=== PATIENT | male | born 1960 | race Caucasian/White ===

== ENCOUNTER 2021-05-22 06:11 | Day surgery (SDC) | payer OTHER ==
[~2021-05-22] VITALS: Ht 165.1 cm; Wt 75.0 kg
[2021-05-22] MEDS ORDERED: LIDOCAINE 2% 30 ML JELLY TP ONE (06:12)
[2021-05-22] MEDS ORDERED: LIDOCAINE 4% 50 ML SOLUTION TP ONE (06:12)
[2021-05-22] MEDS ORDERED: BENZOCAINE 20% 50 MCG/SPRAY 57 GM TP ONE (06:12)
[2021-05-22] MEDS ORDERED: SODIUM CHLORIDE 0.9% 1,000 ML IV ONE (06:30)
[2021-05-22 06:44] LABS: COVID AG,FIA SOURCE NASOPHARYNGEAL
[2021-05-22] MEDS ORDERED: SODIUM CHLORIDE 0.9% 1,000 ML ONE (06:48)
[2021-05-22] MEDS ORDERED: FentaNYL CITRATE PF 100 MCG/2 ML VIAL ONE (07:24)
[2021-05-22] MEDS ORDERED: MIDAZOLAM HCL 5 MG/ML VIAL ONE (07:24)
[2021-05-22] MEDS ORDERED: FINA5TAB41 PO (07:47)
[2021-05-22] MEDS ORDERED: FISH1 PO (07:47)
[2021-05-22] MEDS ORDERED: ATOR10TA69 PO (07:47)
[2021-05-22] MEDS ORDERED: MONT-40 PO (07:47)
[2021-05-22] MEDS ORDERED: FAMO20TA8 PO (07:47)
[2021-05-22] MEDS ORDERED: AMLO5TAB66 PO (07:47)
[2021-05-22] MEDS ORDERED: CHOL200016 PO (07:47)
[2021-05-22] MEDS ORDERED: ASPI-1444 PO (07:47)
[2021-05-22] MEDS ORDERED: MethylPREDNISolone SOD SUCC 125 MG/2 ML VIAL IVP ONE (09:15)
[2021-05-22] MEDS ORDERED: MethylPREDNISolone SOD SUCC 125 MG/2 ML VIAL ONE (09:23)
[2021-05-22] MEDS ORDERED: OXYGEN THERAPY IH SCH (20:00)
== END 2021-05-22 12:00 | disposition home or self-care (01) ==
LOC: SURGERY 06:11
PROVIDERS: ATTEND Internal Medicine Critical Care Medicine
DX: J38.4 Edema of larynx (principal); B37.0 Candidal stomatitis; J39.8 Other specified diseases of upper respiratory tract; Z79.899 Other long term (current) drug therapy; Z98.890 Other specified postprocedural states
CPT/HCPCS: 31623; 31624; 71045; 71250; 87015; 87070; 87101; 87206; 87220; 87426; 88112; 88184; 88185; 88312; C9803; J2250; J2930; J3010; J7030; Z7610

== ENCOUNTER 2022-04-12 06:21 | Day surgery (SDC) | payer OTHER ==
[~2022-04-12] VITALS: Ht 158.8 cm; Wt 76.3 kg
[~2022-04-12 06:21] MED LIST: AMLO5TAB66 PO; ASPI-1444 PO; ATOR10TA69 PO; CHOL200059 PO; FAMO20TA8 PO; FINA5TAB41 PO; FISH1 PO; MONT-40 PO
[2022-04-12] MEDS ORDERED: LIDOCAINE 2% 11 ML JELLY TP ONE (06:22)
[2022-04-12] MEDS ORDERED: ALBUTEROL SULFATE 2.5 MG/0.5 ML NEB SOLUTION NEB ONE (06:22)
[2022-04-12] MEDS ORDERED: LIDOCAINE 4% 50 ML SOLUTION TP ONE (06:22)
[2022-04-12] MEDS ORDERED: BENZOCAINE 20% 50 MCG/SPRAY 57 GM TP ONE (06:22)
[2022-04-12 06:59] LABS: COVID AG,FIA SOURCE NASAL SWAB
[2022-04-12] MEDS ORDERED: SODIUM CHLORIDE 0.9% 1,000 ML IV ONE (07:00)
[2022-04-12] MEDS ORDERED: SODIUM CHLORIDE 0.9% 1,000 ML ONE (07:43)
[2022-04-12] MEDS ORDERED: FentaNYL CITRATE PF 100 MCG/2 ML VIAL ONE (08:30)
[2022-04-12] MEDS ORDERED: MIDAZOLAM HCL 2 MG/2 ML VIAL ONE (08:31)
[2022-04-12] MEDS ORDERED: MethylPREDNISolone SOD SUCC 125 MG/2 ML VIAL IVP ONE (09:45)
[2022-04-12] MEDS ORDERED: MethylPREDNISolone SOD SUCC 125 MG/2 ML VIAL ONE (10:16)
[2022-04-12] MEDS ORDERED: OXYGEN THERAPY IH SCH (20:00)
== END 2022-04-12 12:40 | disposition home or self-care (01) ==
LOC: SURGERY 06:21
PROVIDERS: ATTEND Internal Medicine Critical Care Medicine
DX: J38.4 Edema of larynx (principal); B37.0 Candidal stomatitis; I10 Essential (primary) hypertension; E78.00 Pure hypercholesterolemia, unspecified; Z20.822 Contact with and (suspected) exposure to COVID-19; Z79.899 Other long term (current) drug therapy; Z98.890 Other specified postprocedural states
CPT/HCPCS: 31623; 88112; 87101; 87220; 87070; 88305; 87186; 31624; 94640; 71045; 87015; 87426; 87206; J3010; J2250; J2930; Q9967; J7030; C9803; J7613; Z7610

== ENCOUNTER 2023-09-21 06:53 | Day surgery (SDC) | payer OTHER ==
[~2023-09-21] VITALS: Ht 160 cm; Wt 76.8 kg
[~2023-09-21 06:53] MED LIST changes: -ASPI-1444 PO; +CETI10TA58 PO; +FAMO20 PO; -FAMO20TA8 PO; -FISH1 PO; +FLUT16SP NASAL; +OMEG10005 PO; +SODIUM CHLORIDE 0.9% 1,000 ML ONE
[2023-09-21] MEDS ORDERED: BENZOCAINE 20% 50 MCG/SPRAY 57 GM TP ONE ×2 (06:54)
[2023-09-21] MEDS ORDERED: LIDOCAINE 2% 11 ML JELLY TP ONE ×2 (06:54)
[2023-09-21] MEDS ORDERED: LIDOCAINE 4% 50 ML SOLUTION TP ONE ×2 (06:54)
[2023-09-21] MEDS ORDERED: LOSA-381 PO (07:34)
[2023-09-21] MEDS ORDERED: FLUT1BLS10 IH (07:34)
[2023-09-21] MEDS ORDERED: SEMA7TAB2 PO (07:34)
[2023-09-21] MEDS: SODIUM CHLORIDE 0.9% 1,000 ML IV ONE (08:11)
[2023-09-21] MEDS ORDERED: FentaNYL CITRATE PF 100 MCG/2 ML VIAL ONE (08:30)
[2023-09-21] MEDS ORDERED: MIDAZOLAM HCL 2 MG/2 ML VIAL ONE (08:30)
[2023-09-21 09:08] VITALS: PULSE 62; RESP 13; O2SAT 100
[2023-09-21] MEDS ORDERED: MethylPREDNISolone SOD SUCC 125 MG/2 ML VIAL ONE (09:15)
[2023-09-21] MEDS: MethylPREDNISolone SOD SUCC 125 MG/2 ML VIAL IVP ONE (09:50)
== END 2023-09-21 12:35 | disposition home or self-care (01) ==
LOC: SURGERY 06:53
PROVIDERS: ATTEND Internal Medicine Critical Care Medicine
DX: R05.3 Chronic cough (principal); J38.4 Edema of larynx; B37.0 Candidal stomatitis; R06.2 Wheezing; R04.2 Hemoptysis; J81.1 Chronic pulmonary edema; J84.10 Pulmonary fibrosis, unspecified; E78.00 Pure hypercholesterolemia, unspecified; I10 Essential (primary) hypertension; Z79.899 Other long term (current) drug therapy; Z98.890 Other specified postprocedural states
CPT/HCPCS: 31623; 99156; 87206; 87101; 87220; 87070; 31624; 71045; 87015; J3010; J2250; J2919; J7030; Z7610

== ENCOUNTER 2024-08-08 06:20 | Day surgery (SDC) | payer OTHER ==
[~2024-08-08] VITALS: Ht 165.1 cm; Wt 77.3 kg
[~2024-08-08 06:20] MED LIST changes: -FAMO20 PO; -FINA5TAB41 PO; +FLUT1BLS10 IH; +LOSA-381 PO; +OMEG100014 PO; -OMEG10005 PO; +SEMA7TAB2 PO
[2024-08-08] MEDS ORDERED: LIDOCAINE 4% 50 ML SOLUTION TP ONE (06:21)
[2024-08-08] MEDS ORDERED: LIDOCAINE 2% 11 ML JELLY TP ONE (06:21)
[2024-08-08] MEDS ORDERED: BENZOCAINE 20% 50 MCG/SPRAY 57 GM TP ONE (06:21)
[2024-08-08] MEDS: SODIUM CHLORIDE 0.9% 1,000 ML IV ONE (07:55)
[2024-08-08] MEDS ORDERED: MethylPREDNISolone SOD SUCC 125 MG/2 ML VIAL ONE (08:19)
[2024-08-08] MEDS ORDERED: FentaNYL CITRATE PF 100 MCG/2 ML VIAL ONE (08:22)
[2024-08-08] MEDS ORDERED: MIDAZOLAM HCL 2 MG/2 ML VIAL ONE (08:23)
[2024-08-08 09:00] VITALS: PULSE 87; RESP 14; O2SAT 98
[2024-08-08] MEDS: MethylPREDNISolone SOD SUCC 125 MG/2 ML VIAL IVP ONE (09:38)
== END 2024-08-08 16:00 | disposition home or self-care (01) ==
LOC: SURGERY 06:20
PROVIDERS: ATTEND Internal Medicine Critical Care Medicine
DX: R05.3 Chronic cough (principal); J38.4 Edema of larynx; B37.0 Candidal stomatitis; I10 Essential (primary) hypertension; Z87.891 Personal history of nicotine dependence; Z98.890 Other specified postprocedural states
CPT/HCPCS: 31623; 87206; 87101; 87220; 87070; 31624; 71045; 87015; J3010; J2250; J2919; J7030; Z7610